=== PATIENT | female | born 1965 | race Caucasian/White ===

== ENCOUNTER 2018-04-14 10:14 | Day surgery (SDC) | payer OTHER ==
[~2018-04-14] VITALS: Ht 165.1 cm; Wt 79.8 kg
[~2018-04-14 10:14] MED LIST: ADV250INH INH; ALIVTAB PO; CHLO50TA PO; CLAR10CA3 PO; FLUO20CA8 PO; LIDOCAINE 2% INJ 100 MG/5 ML SDV (FOR ANES.) As Ordered ONE; MULT1TAB10 PO; OMEP20CA3 PO; PROPOFOL 200 MG/20 ML VIAL As Ordered ONE; VITA100072 PO
[2018-04-14] MEDS ORDERED: NS 1,000 ML IV ONE (11:00)
--- NOTE | 2018-04-14 11:45 | ROOR ---
Patient Name: Roxie Magallon Procedure Date: 04/14/2018 11:24 AM Date of : 1965 Age: 52 Room: [facility] Gender: Female Note Status: Finalized Procedure: Colonoscopy Indications: Screening for colorectal malignant neoplasm Providers: Nehemiah STOCK MD Referring MD: Roxie FORREST MD Requesting Provider: Medicines: Monitored Anesthesia Care Complications: No immediate complications. Procedure: Pre-Anesthesia Assessment: - The heart rate, respiratory rate, oxygen saturations, blood pressure, adequacy of pulmonary ventilation, and response to care were monitored throughout the procedure. The Colonoscope was introduced through the anus and advanced to the cecum, identified by appendiceal orifice and ileocecal valve. The colonoscopy was performed without difficulty. The patient tolerated the procedure well. The quality of the bowel preparation was good. Findings: The perianal and digital rectal examinations were normal. Retroflexion in the right colon was performed. The entire examined colon appeared normal on direct and retroflexion views. Impression: - Small internal Hemorrhoids. - The entire colon is normal on direct and retroflexion views. - No specimens collected. Recommendation: - Repeat colonoscopy in 10 years for screening purposes. - RE: Possible "abnormal liver" history. I ordered Ultrasound and lab work. my office will call you to schedule this. Nehemiah Stock MD Nehemiah STOCK MD 04/14/2018 11:45:24 AM This report has been signed electronically. Number of Addenda: 0 Note Initiated On: 04/14/2018 11:24 AM Estimated Blood Loss: Estimated blood loss: none.
[2018-04-14 12:00] VITALS: BP 140/73
== END 2018-04-14 12:08 | disposition home or self-care (01) ==
LOC: M OPP 10:14
PROVIDERS: ATTEND Internal Medicine Gastroenterology
DX: K64.8 Other hemorrhoids (principal); Z12.11 Encounter for screening for malignant neoplasm of colon

== ENCOUNTER → 2018-05-27 | Outpatient (CLI) | payer OTHER ==
[~2018-05-27] MED LIST changes: -LIDOCAINE 2% INJ 100 MG/5 ML SDV (FOR ANES.) As Ordered ONE; -PROPOFOL 200 MG/20 ML VIAL As Ordered ONE
[2018-05-27 12:19] LABS: INR 0.95; PROTHROMBIN TIME 12.8 SECONDS (12.1-14.4)
[2018-05-27 12:20] LABS: PARTIAL THROMBOPLASTIN TIME 30.4 SECONDS (25.4-37.6)
[2018-05-27 12:46] LABS: ALBUMIN 4.2 GM/DL (3.2-5.2); BILIRUBIN,DIRECT 0.1 MG/DL (0.0-0.2); BILIRUBIN,TOTAL 0.4 MG/DL (0.2-1.0); TOTAL PROTEIN 7.9 GM/DL (6.4-8.2)
--- NOTE | 2018-05-28 06:20 | REP ---
Clinical: Abnormal liver function tests. Technique: Real time talbot scale and color evaluation using curved array transducer. Findings: Liver is mildly increased echogenicity without focal hepatic lesion identified. Pancreas is unremarkable. The patient is noted to be status post cholecystectomy. No biliary ductal dilatation is appreciated and the common bile duct measures 4.6 mm diameter. Right kidney is normal in reniform shape without hydronephrosis and measures 9.8 x 5.2 x 4.2 cm. No ascites. Impression: Hepatic steatosis. Electronically Signed by Eliecer Benitez MD 05/28/2018 06:12 A
== END ==
LOC: M RAD 08:25
PROVIDERS: ATTEND Internal Medicine Gastroenterology
DX: R94.5 Abnormal results of liver function studies (principal)

== ENCOUNTER → 2018-08-29 | Outpatient (REF) | payer OTHER ==
[~2018-08-29] MED LIST changes: +VITA100018 PO; -VITA100072 PO
== END ==
LOC: M SFHCLERA 15:58
PROVIDERS: ATTEND Nurse Practitioner Family
DX: J02.9 Acute pharyngitis, unspecified (principal)

== ENCOUNTER → 2019-08-28 | Outpatient (CLI) | payer OTHER ==
[~2019-08-28] MED LIST changes: +FLUO20CA20 PO; -FLUO20CA8 PO; +OMEP1CAP73 PO; -OMEP20CA3 PO
--- NOTE | 2019-08-28 11:20 | REPPI ---
ELBOW: REASON: Pain. FINDINGS: There is no acute fracture, dislocation, subluxation, or joint effusion. Electronically Signed by Chucho Montelongo DO 08/28/2019 11:25 A
== END ==
LOC: M PLAIMG 10:17
PROVIDERS: ATTEND Family Medicine
DX: M25.521 Pain in right elbow (principal)

== ENCOUNTER → 2019-12-03 | Outpatient (CLI) | payer OTHER ==
[2019-12-03 19:23] LABS: BASO % 0.3 % (0.0-1.0); EOS # 0.2 10^3/uL (0.0-0.5); EOS % 2.1 % (0.0-3.0); HEMATOCRIT 45.5 % (36.0-47.0); HEMOGLOBIN 14.9 g/dl (12.0-15.5); LYMPH # 1.9 10^3/uL (1.5-5.0); LYMPH % 24.7 % (24.0-44.0); MEAN CORPUSCULAR HEMOGLOBIN 28.9 pg (27.0-33.0); MEAN CORPUSCULAR HGB CONC 32.7 g/dl (32.0-36.5); MEAN CORPUSCULAR VOLUME 88.3 fl (80.0-96.0); MONO # 0.6 10^3/uL (0.0-0.8); MONO % 7.4 % (0.0-5.0); NEUTROPHILS # 5.1 10^3/uL (1.5-8.5); NEUTROPHILS % 65.1 % (36.0-66.0); PLATELET COUNT, AUTOMATED 376 10^3/uL (150-450); RED BLOOD COUNT 5.15 10^6/uL (4.00-5.40); WHITE BLOOD COUNT 7.7 10^3/uL (4.0-10.0)
[2019-12-03 19:30] LABS: ALBUMIN 4.1 GM/DL (3.2-5.2); ALT/SGPT 24 U/L (12-78); BILIRUBIN,TOTAL 0.5 MG/DL (0.2-1.0); BLOOD UREA NITROGEN 16 MG/DL (7-18); CALCIUM LEVEL 9.8 MG/DL (8.5-10.1); CARBON DIOXIDE LEVEL 35 MEQ/L (21-32); CHLORIDE LEVEL 98 MEQ/L (98-107); CREATININE FOR GFR 0.83 MG/DL (0.55-1.30); GLOMERULAR FILTRATION RATE > 60.0 (>51); GLUCOSE, FASTING 99 MG/DL (70-100); MAGNESIUM LEVEL 1.9 MG/DL (1.8-2.4); PHOSPHORUS LEVEL 2.7 MG/DL (2.5-4.9); POTASSIUM SERUM 3.5 MEQ/L (3.5-5.1); SODIUM LEVEL 137 MEQ/L (136-145); TOTAL PROTEIN 8.1 GM/DL (6.4-8.2)
== END ==
LOC: M LRY 09:37
PROVIDERS: ATTEND Family Medicine
DX: E87.6 Hypokalemia (principal)

== ENCOUNTER → 2020-12-09 | Outpatient (CLI) | payer OTHER ==
[2020-12-09 12:02] LABS: CHOLESTEROL LEVEL 239 MG/DL (<200); CHOLESTEROL RISK RATIO 7.029 (<5); FREE T4 0.98 NG/DL (0.76-1.46); HDL CHOLESTEROL 34 MG/DL (>40); NON-HDL-C 205 MG/DL; TRIGLYCERIDES LEVEL 488 MG/DL (<150)
== END ==
LOC: M WUC 08:25
PROVIDERS: ATTEND Student in an Organized Health Care Education/Training Program
DX: R23.2 Flushing (principal); E78.5 Hyperlipidemia, unspecified

== ENCOUNTER → 2021-04-18 | Outpatient (REF) | payer OTHER ==
[~2021-04-18] MED LIST changes: +FLUO-96 PO; -FLUO20CA20 PO
== END ==
LOC: M PLALAB 14:52
PROVIDERS: ATTEND Nurse Practitioner Women's Health
DX: Z12.4 Encounter for screening for malignant neoplasm of cervix (principal)
CPT/HCPCS: 87624; G0123

== ENCOUNTER → 2023-02-27 | Outpatient (REF) | payer OTHER | LOC: M SFHCWAGY 12:42 | PROVIDERS: ATTEND Nurse Practitioner Family | DX: N73.9 Female pelvic inflammatory disease, unspecified (principal) ==

== ENCOUNTER → 2023-07-08 | Outpatient (CLI) | payer OTHER ==
[2023-07-08 08:06] LABS: C REACTIVE PROTEIN QUANTITATIV < 0.40 MG/DL (<1.0)
[2023-07-08 08:08] LABS: RHEUMATOID FACTOR QUANT 3.6 IU/ML (<14)
[2023-07-09 23:07] LABS: ANA (HEP2) Negative (.); CYCLIC CITRULLINATED PEPTIDE 4 units (0-19); SSA SJOGRENS A <0.2 AI (0.0-0.9); SSB SJOGRENS B <0.2 AI (0.0-0.9)
== END ==
LOC: M RAD 06:46
PROVIDERS: ATTEND Physician Assistant
DX: S99.921A Unspecified injury of right foot, initial encounter (principal); H04.123 Dry eye syndrome of bilateral lacrimal glands; Y92.9 Unspecified place or not applicable; Y93.9 Activity, unspecified

== ENCOUNTER → 2024-10-21 | Outpatient (REF) | payer OTHER ==
[~2024-10-21] MED LIST changes: -ADV250INH INH; +ADVA1AER9 INH
[2024-10-21 18:54] LABS: ALT/SGPT 21 U/L (7.0-40); AST/SGOT 23 U/L (<34); BASO # 0.0 10^3/uL (0.0-0.2); BASO % 0.3 % (0.0-1.0); CALCIUM LEVEL 9.8 MG/DL (8.5-10.1); CARBON DIOXIDE LEVEL 32 MMOL/L (20-31); CHLORIDE LEVEL 100 MMOL/L (98-107); CHOLESTEROL LEVEL 200 MG/DL (<200); CHOLESTEROL RISK RATIO 3.97 (<5); CREATININE FOR GFR 0.73 MG/DL (0.55-1.30); EOS # 0.2 10^3/uL (0.0-0.5); EOS % 2.7 % (0.0-3.0); GLOMERULAR FILTRATION RATE > 90.0 (>51); LDL CHOLESTEROL 104.5 MG/DL (<100); LYMPH # 1.7 10^3/uL (1.5-5.0); LYMPH % 26.3 % (24.0-44.0); MONO # 0.4 10^3/uL (0.0-0.8); MONO % 6.5 % (2.0-8.0); NEUTROPHILS # 4.2 10^3/uL (1.5-8.5); NEUTROPHILS % 64.0 % (36.0-66.0); NON-HDL-C 149.7 MG/DL; PLATELET COUNT, AUTOMATED 354 10^3/uL (150-450); POTASSIUM SERUM 3.1 MMOL/L (3.5-5.1); SODIUM LEVEL 143 MMOL/L (136-145); TRIGLYCERIDES LEVEL 226 MG/DL (<150)
[2024-10-21 18:55] LABS: FREE T4 1.19 NG/DL (0.89-1.76)
[2024-10-21 19:22] LABS: ESTIMATED AVERAGE GLUCOSE 97.0 MG/DL (60-110)
== END ==
LOC: M SFHCLERA 10:38
PROVIDERS: ATTEND Family Medicine
DX: Z00.00 Encounter for general adult medical examination without abnormal findings (principal)

== ENCOUNTER → 2024-11-02 | Outpatient (REF) | payer OTHER ==
[2024-11-02 19:12] LABS: CALCIUM LEVEL 9.4 MG/DL (8.5-10.1); CARBON DIOXIDE LEVEL 31 MMOL/L (20-31); CHLORIDE LEVEL 99 MMOL/L (98-107); CREATININE FOR GFR 0.65 MG/DL (0.55-1.30); GLOMERULAR FILTRATION RATE > 90.0 (>51); MAGNESIUM LEVEL 1.7 MG/DL (1.8-2.4); POTASSIUM SERUM 3.1 MMOL/L (3.5-5.1); SODIUM LEVEL 141 MMOL/L (136-145)
== END ==
LOC: M SFHCLERA 11:07
PROVIDERS: ATTEND Family Medicine
DX: E87.6 Hypokalemia (principal)